=== PATIENT | female | born 1960 | race Caucasian/White ===

== ENCOUNTER 2018-07-07 13:12 | Emergency (ER) | payer MEDICARE, MEDICAID ==
[2018-07-07 13:39] VITALS: BP 147/86
--- NOTE | 2018-07-07 13:58 | UC ---
Skin Complaint HPI - HPI Summary HPI Summary: rash mid forehead x 2 days had skin tags on her forehead , the skin tags scabbed and became red , swelling and tender low grade fever, chills , - History of Current Complaint Chief Complaint: UCSkin Time Seen by Provider: 07/07/18 13:44 Stated Complaint: SKIN COMPLAINT Hx Obtained From: Patient Onset/Duration: Gradual Onset, Lasting Days - 2, Still Present Onset Severity: Moderate Current Severity: Severe Pain Intensity: 0 Location: Discrete - forehead Character: Swelling, Pruritus, Pain, Redness, Raised, Painful Aggravating Factor(s): Nothing Alleviating Factor(s): Nothing Associated Signs & Symptoms: Positive: Fever, Chills, Tenderness. Negative: Nausea, Vomiting, Numbness, Weakness, Pallor, Shivering, Cough, Wheezing - Allergy/Home Medications Allergies/Adverse Reactions: Allergies Allergy/AdvReac Type Severity Reaction Status Date / Time Adhesive Tape Allergy Intermediate RASH, Verified 05/17/18 15:06 ITCHING, SWELLING amoxicillin [From Augmentin] Allergy Difficulty Verified 05/17/18 15:06 Breathing banana Allergy Anaphylatic Verified 05/17/18 15:06 Shock clavulanic acid Allergy Difficulty Verified 05/17/18 15:06 [From Augmentin] Breathing codeine Allergy Nausea And Verified 05/17/18 15:06 Vomiting erythromycin base Allergy Vomiting Verified 05/17/18 15:06 lanolin Allergy hives, Verified 05/17/18 15:06 itching, difficulty breathing latex Allergy itching, Verified 05/17/18 15:06 rash, shortness of breath Penicillins Allergy Difficulty Verified 05/17/18 15:06 Breathing propoxyphene Allergy Hives Verified 05/17/18 15:06 corn/corn products Allergy Severe Diarrhea Uncoded 10/14/17 13:40 SUTRUE MATERIAL? TYPE Allergy Intermediate LOCAL Uncoded 10/14/17 13:40 REDNESS AND SWELLING FIGS Allergy MIRAINES Uncoded 10/14/17 13:40 MSG Allergy CAUSES Uncoded 10/14/17 13:40 MIGRAINE [place]ola AdvReac Mild Diarrhea Uncoded 10/14/17 13:40 [email or web address] AdvReac Mild Dizziness Uncoded 10/14/17 13:40 PMH/Surg Hx/FS Hx/Imm Hx Endocrine History: Diabetes, Thyroid Disease, Hypothyroidism Cardiovascular History: Hypertension Respiratory History: Asthma - Surgical History Surgical History: Yes Surgery Procedure, Year, and Place: bilateral mastectomy. cholecystectomy. c section. breast reconstruction. laparoscopic ovarian cystectomy. 2ND BREAST RECONSTRUCTION- JUL 2014. infusaport insertion/removal - Family History Known Family History: Positive: Hypertension, Diabetes - Social History Alcohol Use: Occasionally Substance Use Type: None Substance Use Comment - Amount & Last Used: percocet, tramadol Smoking Status (MU): Never Smoked Tobacco Have You Smoked in the Last Year: No Review of Systems All Other Systems Reviewed And Are Negative: Yes Constitutional: Positive: Fever, Chills, Fatigue Skin: Positive: Rash Eyes: Positive: Negative ENT: Positive: Negative Respiratory: Positive: Negative Cardiovascular: Positive: Negative Is Patient Immunocompromised?: No Physical Exam Triage Information Reviewed: Yes Appearance: Well-Appearing, No Pain Distress, Well-Nourished Vital Signs: Initial Vital Signs Temp 98.6 F 07/07/18 13:35 Pulse 109 07/07/18 13:35 Resp 18 07/07/18 13:35 BP 147/86 07/07/18 13:35 Pulse Ox 96 07/07/18 13:35 Vital Signs Reviewed: Yes Eye Exam: Normal Eyes: Positive: Conjunctiva Clear ENT Exam: Normal ENT: Positive: Normal ENT inspection, Hearing grossly normal, Pharynx normal Neck exam: Normal Neck: Positive: Supple, Nontender, No Lymphadenopathy Respiratory Exam: Normal Respiratory: Positive: Chest non-tender, Lungs clear, Normal breath sounds Cardiovascular: Positive: RRR, No Murmur, Pulses Normal Musculoskeletal Exam: Normal Musculoskeletal: Positive: Strength Intact, No Edema Skin: Positive: Rashes - area of erythema, swelling, tender to touch , warm to touch Course/Dx - Diagnoses Provider Diagnosis: Cellulitis of forehead Discharge - Sign-Out/Discharge Documenting (check all that apply): Patient Departure All imaging exams completed and their final reports reviewed: No Studies - Discharge Plan Condition: Stable Disposition: HOME Prescriptions: Clindamycin Cap(NF) [Clindamycin Cap 300 mg Cap(NF)] 300 mg PO TID #30 cap Patient Education Materials: Cellulitis (ED) Referrals: Akira Dickens DO [Primary Care Provider] - 3 Days - Billing Disposition and Condition Condition: STABLE Disposition: Home
== END 2018-07-07 13:57 | disposition home or self-care (01) ==
LOC: UCCORT 13:12
DX: L03.211 Cellulitis of face (principal); Z88.0 Allergy status to penicillin; Z88.8 Allergy status to other drugs, medicaments and biological substances; Z88.1 Allergy status to other antibiotic agents; Z88.6 Allergy status to analgesic agent; E11.9 Type 2 diabetes mellitus without complications; I10 Essential (primary) hypertension
CPT/HCPCS: 99212; G0463